=== PATIENT | male | born 1975 | race Two or more races ===

== ENCOUNTER 2024-08-06 18:32 | Emergency (ER) | payer MEDICAID, OTHER ==
[~2024-08-06] VITALS: Ht 175.3 cm; Wt 65.0 kg
--- NOTE | 2024-08-06 19:52 | ED.PDOC ---
History of Present Illness HPI Comments 49-year-old male with unknown PMHx presents with a chief complaint of hallucinations x onset today. Patient states that he is hearing voices that are telling him to harm himself. Patient mentions that he was just released from [facility] from a hold. Patient is endorsing abdominal pain and reports that it radiates down to his rectum. Chief Complaint: Suicidal Time Seen by MD: 19:40 Primary Care Provider: OLGA Lora Notes: Medications, Allergies Allergies: Coded Allergies: NO KNOWN ALLERGIES (Unverified , 08/06/24) Information Source: Patient Mode of Arrival: EMS Severity: Moderate Timing: Hours Duration: Since onset Prehospital treatment: None Past Medical History PAST MEDICAL HISTORY: Pt Confused Surgical History: Pt Confused Family History Family History: Reviewed,noncontributory to illness Social History Smoker: Non-Smoker Alcohol: Denies ETOH Use Drugs: Denies Drug Use Lives In: Home Constitutional: denies: chills, diaphoresis, fatigue, fever, malaise, sweats, weakness, others EENTM: denies: blurred vision, double vision, ear bleeding, ear discharge, ear drainage, ear pain, ear ringing, eye pain, eye redness, hearing loss, mouth pain, mouth swelling, nasal discharge, nose bleeding, nose congestion, nose pain, photophobia, tearing, throat pain, throat swelling, voice changes, others Respiratory: denies: cough, hemoptysis, orthopnea, SOB at rest, shortness of breath, SOB with excertion, stridor, wheezing, others Cardiovascular: denies: chest pain, dizzy spells, diaphoresis, Dyspnea on exertion, edema, irregular heart beat, left arm pain, lightheadedness, palpitations, PND, syncope, others Gastrointestinal: reports: abdominal pain; denies: abdomen distended, blood streaked bowels, constipated, diarrhea, dysphagia, difficulty swallowing, hematemesis, melena, nausea, poor appetite, poor fluid intake, rectal bleeding, rectal pain, vomiting, others Genitourinary: denies: burning, dysuria, flank pain, frequency, hematuria, incontinence, penile discharge, penile sore, pain, testicle pain, testicle swelling, urgency, others Neurological: denies: dizziness, fainting, headache, left sided numbness, left sided weakness, numbness, paresthesia, pre-existing deficit, right sided numbness, right sided weakness, seizure, speech problems, tingling, tremors, weakness, others Musculoskeletal: denies: back pain, gout, joint pain, joint swelling, muscle pain, muscle stiffness, neck pain, others Integumetry: denies: bruises, change in color, change in hair/nails, dryness, laceration, lesions, lumps, rash, wounds, others Allergic/Immunocompromised: denies: Difficulty Healing, Frequent Infections, Hives, Itching, others Hematologic/Lymphatic: denies: anemia, blood clots, easy bleeding, easy bruising, swollen glands, others Endocrine: denies: excessive hunger, excessive sweating, excessive thirst, excessive urination, flushing, intolerance to cold, intolerance to heat, unexplained weight gain, unexplained weight loss, others Psychiatric: reports: others (HALLUCINATIONS); denies: anxiety, bipolar disorder, depression, hopeless, panic disorder, schizophrenia, sleepless, suicidal All Other Systems: Reviewed and Negative Physical Exam General Appearance: No Apparent Distress, Normal HEENT: Normal ENT Inspection, Pharynx Normal, TMs Normal Neck: Full Range of Motion, Non-Tender, Normal, Normal Inspection Respiratory: Chest Non-Tender, Lungs Clear, No Accessory Muscle Use, No Respiratory Distress, Normal Breath Sounds Cardiovascular: No Edema, No JVD, No Murmur, No Gallop, Normal Peripheral Pulses, Regular Rate/Rhythm Breast Exam: Deferred Gastrointestinal: No Organomegaly, Non Tender, No Pulsatile Mass, Normal Bowel Sounds, Soft Genitalia: Deferred Pelvic: Deferred Rectal: Deferred Extremities: No calf tenderness, Normal capillary refill, Normal inspection, Normal range of motion, Non-tender, No pedal edema Musculoskeletal : Apperance: Normal Neurologic: Alert, sign manufacturer II-XII nml as Tested, No Motor Deficits, Normal Affect, Normal Mood, No Sensory Deficits Cerebellar Function: Normal Reflexes: Normal Skin: Dry, Normal Color, Warm Lymphatic: No Adenopathy Was a procedure done? Was a procedure done?: No Differential Dx Considerations may include: SI, Depression, Anxiety, Psychosis, Schizophrenia X-Ray, Labs, Meds, VS Vital Signs Date Time Temp Pulse Resp B/P (MAP) Pulse Ox O2 Delivery O2 Flow Rate FiO2 08/06/24 18:36 97.7 103 14 133/80 (97) 97 Lab Test 08/06/24 19:54 08/06/24 18:43 Range/Units White Blood Count 11.2 H 4.4-10.8 10^3/uL Red Blood Count 4.58 4.5-5.90 10^6/uL Hemoglobin 13.5 13.5-17.5 g/dL Hematocrit 40.1 L 41.0-53.0 % Mean Corpuscular Volume 87.6 80.0-100.0 fL Mean Corpuscular Hemoglobin 29.6 28.0-32.0 pg Mean Corpuscular Hemoglobin Concent 33.8 32.0-36.0 g/dL Red Cell Distribution Width 14.0 11.8-14.3 % Platelet Count 376 140-450 10^3/uL Mean Platelet Volume 9.3 6.9-10.8 fL Neutrophils (%) (Auto) 70.2 37.0-80.0 % Lymphocytes (%) (Auto) 21.1 10.0-50.0 % Monocytes (%) (Auto) 6.9 0.0-12.0 % Eosinophils (%) (Auto) 1.5 0.0-7.0 % Basophils (%) (Auto) 0.3 0.0-2.0 % Neutrophils # (Auto) 7.8 1.6-8.6 10 ^3/uL Lymphocytes # (Auto) 2.4 0.4-5.4 10 ^3/uL Monocytes # (Auto) 0.8 0-1.3 10 ^3/uL Eosinophils # (Auto) 0.2 0-0.8 10 ^3/uL Basophils # (Auto) 0 0-0.2 10 ^3/uL Nucleated Red Blood Cells 0.0 % Sodium Level 138 136-145 mmol/L Potassium Level 4.2 3.5-5.1 mmol/L Chloride Level 104 98-107 mmol/L Carbon Dioxide Level 26 20-31 mmol/L Anion Gap 8 5-15 Blood Urea Nitrogen 24 H 9-23 mg/dL Creatinine 0.99 0.700-1.30 mg/dL Glomerular Filtration Rate Calc 93 >90 mL/min BUN/Creatinine Ratio 24.2 H 10.0-20.0 Serum Glucose 113 H 74-106 mg/dL Calcium Level 10.4 8.7-10.4 mg/dL Salicylates Level < 3.0 -30 mg/dL Acetaminophen Level < 2.0 L 10.0-20.0 UG/ML Plasma/Serum Blood Alcohol < 3.0 <10 mg/dL Urine Color Light-yellow Yellow Urine Clarity Clear Clear Urine pH 6.0 5.0-9.0 Urine Specific [place] 1.025 1.001-1.035 Urine Protein Negative Negative Urine Ketones Negative Negative Urine Blood Negative Negative /uL Urine Nitrite Negative Negative Urine Bilirubin Negative Negative Urine Urobilinogen Normal Negative mg/dL Urine Leukocyte Esterase Negative Negative /uL Urine RBC 1 0 - 3 /hpf Urine WBC 1 0 - 3 /hpf Urine Squamous Epithelial Cells None seen <5 /hpf Urine Bacteria None seen None Seen /hpf Urine Glucose Normal Normal mg/dL Urine Opiates Screen Neg NEGATIVE Urine Fentanyl Screen Neg NEGATIVE Urine Barbiturates Screen Neg NEGATIVE Urine Phencyclidine Screen Neg NEGATIVE Urine Amphetamines Screen Neg NEGATIVE Urine Benzodiazepines Screen Neg NEGATIVE Urine Cocaine Screen Neg NEGATIVE Urine Cannabinoids Screen Neg NEGATIVE Time of 1ST Reevaluation: 20:10 Reevaluation 1ST: Unchanged Patient Education/Counseling: Diagnosis, Treatment, Prognosis Family Education/Counseling: No Family Present Departure 1 Departure Time of Disposition: 23:02 (Patient is medically cleared. Patient with command auditory hallucinations to kill himself. Will keep on a hold and look for BHU placement.) Impression: Primary Impression: Suicidal ideations Additional Impression: Hallucinations Disposition: 30 STILL A PATIENT Condition: Guarded Critical Care Note Critical Care Time?: Yes Critical care comment: Suicidal Ideation with Command Auditory Hallucinations Authorized and Performed by: Lucia Robbins MD Total critical care time: Approximately 38 minutes Due to a high probability of clinically significant, life threatening deterioration, the patient required my highest level of preparedness to intervene emergently and I personally spent this critical care time directly and personally managing the patient. This critical care time included obtaining a history; examining the patient; pulse oximetry; ordering and review of studies; arranging urgent treatment with development of a management plan; evaluation of patient's response to treatment; frequent reassessment; and, discussions with other providers. This critical care time was performed to assess and manage the high probability of imminent, life-threatening deterioration that could result in multi-organ failure. It was exclusive of separately billable procedures and treating other patients and teaching time. Please see my other sections and the rest of the note for further information on patient assessment and treatment. Stability Stability form required: No Heart Score Heart Score: Heart Score Response (Comments) Value History N/A 0 EKG N/A 0 Age N/A 0 Risk Factors N/A 0 Troponin N/A 0 Total 0 I personally scribed for LUCIA ROBBINS MD ([email or web address]) on 08/06/24 at 19:52. Electronically submitted by Gutierrez Bentley [email or web address]). LUCIA ROBBINS MD Aug 06, 2024 19:52
[2024-08-06 20:01] LABS: Urine Bacteria None Seen /hpf (None Seen)
[2024-08-06 20:09] LABS: Urine Blood Negative /uL (Negative); Urine Clarity Clear (Clear); Urine Color Light-Yellow (Yellow); Urine Protein, UAD Negative (Negative); Urine Specific Gravity 1.025 (1.001-1.035); Urine Urobilinogen Normal (Negative); Urine WBC 1 /hpf (0 - 3)
[2024-08-06 20:23] LABS: Amphetamine Screen, Urine Neg (NEGATIVE); Barbiturate Scree,Urine Neg (NEGATIVE); Benzodiazephine Screen, Urine Neg (NEGATIVE)
[2024-08-06 20:24] LABS: Cannabinoid Screen, Urine Neg (NEGATIVE); Cocaine Screen, Urine Neg (NEGATIVE); Opiate Scree,Urine Neg (NEGATIVE); Phencyclidine Screen, Urine Neg (NEGATIVE)
[2024-08-06 20:33] LABS: Basophils # (auto) 0 10 ^3/uL (0-0.2); Basophils % (auto) 0.3 % (0.0-2.0); Eosinophils # (auto) 0.2 10 ^3/uL (0-0.8); Eosinophils % (auto) 1.5 % (0.0-7.0); Hematocrit 40.1 % (41.0-53.0); Hemoglobin 13.5 g/dL (13.5-17.5); Lymphocytes # (auto) 2.4 10 ^3/uL (0.4-5.4); Lymphocytes % (auto) 21.1 % (10.0-50.0); Mean Corpuscular Hemoglobin 29.6 pg (28.0-32.0); Mean Corpuscular Hgb Conc. 33.8 g/dL (32.0-36.0); Mean Corpuscular Volume 87.6 fL (80.0-100.0); Monocytes # (auto) 0.8 10 ^3/uL (0-1.3); Monocytes % (auto) 6.9 % (0.0-12.0); Neutrophils # (auto) 7.8 10 ^3/uL (1.6-8.6); Neutrophils % (auto) 70.2 % (37.0-80.0); Platelet Count (auto) 376 10^3/uL (140-450); Red Blood Cells 4.58 10^6/uL (4.5-5.90); White Blood Cell 11.2 10^3/uL (4.4-10.8)
[2024-08-06 20:47] LABS: Chloride 104 mmol/L (98-107); Potassium 4.2 mmol/L (3.5-5.1); Sodium 138 mmol/L (136-145)
[2024-08-06 20:48] LABS: Anion Gap 8 (5-15); Calcium 10.4 mg/dL (8.7-10.4); Carbon Dioxide 26 mmol/L (20-31)
[2024-08-06 20:54] LABS: BUN/Creatinine Ratio 24.2 (10.0-20.0); Blood Alcohol < 3.0 mg/dL (<10)
[2024-08-06 20:57] LABS: Acetaminophen < 2.0 UG/ML (10.0-20.0); Blood Urea Nitrogen 24 mg/dL (9-23); Glucose 113 mg/dL (74-106)
[2024-08-06 21:10] VITALS: PULSE 96; RESP 16; O2SAT 93
[2024-08-06 21:18] LABS: Salicylate < 3.0 mg/dL (-30)
--- NOTE | 2024-08-06 22:59 | DVHINCON2 ---
Date of Service if different f: Aug 06, 2024 Time of Service: 22:38 Consultation ([facility]) Consulting Physician: CHRIS MEDRANO MD Labs Laboratory Tests Test 08/06/24 18:43 08/06/24 19:54 Urine Color Light-yellow (Yellow) Urine Clarity Clear (Clear) Urine pH 6.0 (5.0-9.0) Urine Specific [place] 1.025 (1.001-1.035) Urine Protein Negative (Negative) Urine Ketones Negative (Negative) Urine Blood Negative /uL (Negative) Urine Nitrite Negative (Negative) Urine Bilirubin Negative (Negative) Urine Urobilinogen Normal mg/dL (Negative) Urine Leukocyte Esterase Negative /uL (Negative) Urine RBC 1 /hpf (0 - 3) Urine WBC 1 /hpf (0 - 3) Urine Squamous Epithelial Cells None seen /hpf (<5) Urine Bacteria None seen /hpf (None Seen) Urine Glucose Normal mg/dL (Normal) Urine Opiates Screen Neg (NEGATIVE) Urine Fentanyl Screen Neg (NEGATIVE) Urine Barbiturates Screen Neg (NEGATIVE) Urine Phencyclidine Screen Neg (NEGATIVE) Urine Amphetamines Screen Neg (NEGATIVE) Urine Benzodiazepines Screen Neg (NEGATIVE) Urine Cocaine Screen Neg (NEGATIVE) Urine Cannabinoids Screen Neg (NEGATIVE) White Blood Count 11.2 10^3/uL (4.4-10.8) Red Blood Count 4.58 10^6/uL (4.5-5.90) Hemoglobin 13.5 g/dL (13.5-17.5) Hematocrit 40.1 % (41.0-53.0) Mean Corpuscular Volume 87.6 fL (80.0-100.0) Mean Corpuscular Hemoglobin 29.6 pg (28.0-32.0) Mean Corpuscular Hemoglobin Concent 33.8 g/dL (32.0-36.0) Red Cell Distribution Width 14.0 % (11.8-14.3) Platelet Count 376 10^3/uL (140-450) Mean Platelet Volume 9.3 fL (6.9-10.8) Neutrophils (%) (Auto) 70.2 % (37.0-80.0) Lymphocytes (%) (Auto) 21.1 % (10.0-50.0) Monocytes (%) (Auto) 6.9 % (0.0-12.0) Eosinophils (%) (Auto) 1.5 % (0.0-7.0) Basophils (%) (Auto) 0.3 % (0.0-2.0) Neutrophils # (Auto) 7.8 10 ^3/uL (1.6-8.6) Lymphocytes # (Auto) 2.4 10 ^3/uL (0.4-5.4) Monocytes # (Auto) 0.8 10 ^3/uL (0-1.3) Eosinophils # (Auto) 0.2 10 ^3/uL (0-0.8) Basophils # (Auto) 0 10 ^3/uL (0-0.2) Nucleated Red Blood Cells 0.0 % Sodium Level 138 mmol/L (136-145) Potassium Level 4.2 mmol/L (3.5-5.1) Chloride Level 104 mmol/L (98-107) Carbon Dioxide Level 26 mmol/L (20-31) Anion Gap 8 (5-15) Blood Urea Nitrogen 24 mg/dL (9-23) Creatinine 0.99 mg/dL (0.700-1.30) Glomerular Filtration Rate Calc 93 mL/min (>90) BUN/Creatinine Ratio 24.2 (10.0-20.0) Serum Glucose 113 mg/dL (74-106) Calcium Level 10.4 mg/dL (8.7-10.4) Salicylates Level < 3.0 mg/dL (-30) Acetaminophen Level < 2.0 UG/ML (10.0-20.0) Plasma/Serum Blood Alcohol < 3.0 mg/dL (<10) Appearance: Stated age Psychomotor activity: WNL Behavioral: Cooperative Eye contact: Appropriate Speech: WNL Affect: Mood Congruent Mood: Anxious Thought processes: Linear/Goal-directed Thought content: Hallucinations Suicidal ideations: Present Homicidal ideations: Absent Orientation: Person, Place, Time, Situation Memory intact: Recent Intellect: Average Abstractability: WNL Concentration: Adequate Attention: Adequate Judgement: Poor Insight: Poor Vitals Vital Signs Date Time Temp Pulse Resp B/P (MAP) Pulse Ox O2 Delivery O2 Flow Rate FiO2 08/06/24 18:36 97.7 103 14 133/80 (97 97 Treatment plan discussed: With staff Medication adjusted: Yes Labs ordered: No Psychotherapy provided: No Type: 72 hour hold History of Present Illness Reason for Consult : psychiatric evaluation PER ED PHYSICIAN: 49-year-old male with unknown PMHx presents with a chief complaint of hallucinations x onset today. Patient states that he is hearing voices that are telling him to harm himself. Patient mentions that he was just released from [facility] from a hold. Patient is endorsing abdominal pain and reports that it radiates down to his rectum. PSYCHIATRIST HPI: The patient was seen and evaluated at [facility] ED via telepsychiatry platform. 49 yr old male Reported hearing voices that are say "Kill yourself." He noted he has heard these the past three days. He stated they sound real and he needs help. He stated he wanted to end his life because the voices were getting too loud. He stated he went to [facility] for a week for voices and he was still discharged although he still had strong suicidal ideation. He noted his mood has been terrible. He sleeps poorly because the voices tell him he is worthless. He feels like he needs hospitalization and feels he would harm himself if he was discharged. Past Psychiatric History : Diagnosed with schizophrenia at age 14. Hospitalized a few times. He tried to hang himself 15 years ago. Sees [facility] . Past Medical History: asthma, seasonal allergies Current Medications: remeron 15mg qhs Ativan 1mg seroquel 100mg qhs NKDA Substance use: Denied alcohol and other substance use. Social History : Homeless in [place]. Never . One daughter. Unemployed. Worked in farming and ranching. Diagnosis: SCHIZOPHRENIA Formulation: This 49 yr old male appears to suffer from schizophrenia and has persistent auditory hallucinations which make him want to kill himself. He is a high risk for self harm. He may benefit from admission to [facility] and starting risperdal to help reduce his hallucinations. He meets criteria for involuntary hold on basis of danger to self. Plan: 1. Transfer to behavioral health unit when bed available. 2. Legal-initiate involuntary 5150 hold for danger to self. 3. Medication: recommend starting Risperdal 2mg BID Remeron 15mg qhs. 4. Contact psychiatry if further follow up or reevaluation is desired. 5. Case discussed with ED Physician, Assessment/Diagnosis/Plan Reviewed: Labs, Medications, Previous Orders CHRIS MEDRANO MD Aug 06, 2024 22:39
[2024-08-07] MEDS: KETOROLAC TROMETH 30 MG/ML 1ML VIAL IM ONE (05:14)
[2024-08-07] MEDS: FAMOTIDINE 20 MG TAB PO ONE (05:14)
[2024-08-07] MEDS: diphenhdrAMINE HCL 25 MG CAP PO ONE (05:15)
[2024-08-07] MEDS ORDERED: risperiDONE 1 MG TAB PO ONE (10:00)
[2024-08-07] MEDS: LORazepam 0.5 MG TAB PO ONE (11:05)
[2024-08-07 18:02] VITALS: BP 126/75; PULSE 98; RESP 14; TEMP 98.5; O2SAT 100
[2024-08-07] MEDS ORDERED: MIRTAZAPINE 30 MG TAB PO ONE (22:00)
== END 2024-08-07 00:35 | disposition left against medical advice (07) ==
LOC: EDBD 18:32 → ER 18:32
DX: R45.851 Suicidal ideations (principal); R44.0 Auditory hallucinations
CPT/HCPCS: 36415; 80048; 80307; 80320; 80329; 81001; 85025